=== PATIENT | female | born 2005 | race Caucasian/White ===

== ENCOUNTER 2025-04-17 10:17 | Emergency (ER) | payer OTHER ==
[2025-04-17 10:57] VITALS: BP 158/83; PULSE 102; RESP 16; TEMP 98.7; O2SAT 99
== END 2025-04-17 14:54 | disposition left against medical advice (07) ==
LOC: ED 10:17
DX: S50.871A Other superficial bite of right forearm, initial encounter (principal); W54.0XXA Bitten by dog, initial encounter; Y99.0 Civilian activity done for income or pay